=== PATIENT | male | born 1950 ===

== ENCOUNTER 2016-09-10 06:17 | Day surgery (SDC) | payer MEDICARE, OTHER ==
--- NOTE | ~2016-09-10 | EGD ---
EGD REPORT [facility] [address] [address] NAME: BRIGITTE ROBISONSUSHANT [place] III : [birth year] STATUS : REG [facility] [place] PAT#: [id number] AGE: 66 ADM/REG DATE : 09/10/16 MR#: [id number] REPORT SERV DATE: 09/10/16 DICTATED BY: JIMMIE NAVA DATE: 09/10/16 REPORT STATUS : Draft TRANSCRIBED BY: [facility] DATE: 09/10/16 End[facility] Center Patient Name: Brigitte Robison Sushant Date of : 1950 Attending MD: JIMMIE NAVA MD Procedure Date No Time: 09/10/2016 Procedure: Upper GI endoscopy Indications: Follow-up of Napier's esophagus Referring MD: Quirino PIZANO Medicines: as per anesthesia Complications: No immediate complications. Procedure: Pre-Anesthesia Assessment: - ASA Grade Assessment: III - A patient with severe systemic disease. After obtaining informed consent, the endoscope was passed under direct vision. Throughout the procedure, the patient's blood pressure, pulse, and oxygen saturations were monitored continuously. The GIF H190 [id number] was introduced through the mouth, and advanced to the third part of duodenum. The upper GI endoscopy was accomplished without difficulty. The patient tolerated the procedure. 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 The maximum longitudinal extent of these mucosal changes was 2 cm in length. Mucosa was biopsied with a cold forceps for histology randomly at intervals of 1 cm in the lower third of the esophagus. One specimen bottle was sent to pathology. Localized mild inflammation characterized by erythema was found in the gastric antrum. Biopsies were taken with a cold forceps for histology. The cardia and gastric fundus were normal on retroflexion. The examined duodenum was normal. Impression: - Esophageal mucosal changes secondary to established short-segment Napier's disease. Biopsied. - Gastritis. Biopsied. - Normal examined duodenum. Recommendation: - Await pathology results. - Follow an antireflux regimen. - Continue present medications. Procedure Code(s): --- Professional --- EGD REPORT [facility] [address] [address] NAME: BRIGITTE ROBISON,SUSHANT [place] III : [birth year] STATUS : REG [facility] [place] PAT#: [id number] AGE: 66 ADM/REG DATE : 09/10/16 MR#: [id number] REPORT SERV DATE: 09/10/16 DICTATED BY: JIMMIE NAVA DATE: 09/10/16 REPORT STATUS : Draft TRANSCRIBED BY: [employer] DATE: 09/10/16 [id number], Esophagogastroduodenoscopy, flexible, transoral; with biopsy, single or multiple Diagnosis Code(s): --- Professional --- K22.70, Napier's esophagus without dysplasia K29.70, Gastritis, unspecified, without bleeding CPT copyright 2013 [employer]. All rights reserved. The codes documented in this report are preliminary and upon cathodic protection technician review may be revised to meet current compliance requirements. JIMMIE NAVA MD 09/10/2016 8:13 AM This report has been signed electronically. Number of Addenda: 0 Note Initiated On: 09/10/2016 7:52 AM Scope Withdrawal Time 0 hours 0 minutes 0 seconds [address] [facility] [address] [place] [address]
--- NOTE | ~2016-09-10 | EGD ---
EGD REPORT [facility] [address] [address] NAME: BRIGITTE ROBISONSUSHANT COLE[place] III : [birth year] STATUS : REG [facility] [place] PAT#: [id number] AGE: 66 ADM/REG DATE : 09/10/16 MR#: [id number] REPORT SERV DATE: 09/10/16 DICTATED BY: JIMMIE NAVA DATE: 09/10/16 REPORT STATUS : Draft TRANSCRIBED BY: [facility] DATE: 09/10/16 Endoscopy Center Patient Name: Brigitte Robison Sushant Date of : 1950 Attending MD: JIMMIE NAVA MD Procedure Date No Time: 09/10/2016 Procedure: Colonoscopy Indications: High risk colon cancer surveillance: Personal history of colonic polyps, FH of Colon Cancer - multiple second-degree relatives Referring MD: Quirino PETERSON Medicines: as per anesthesia Complications: No immediate complications. Procedure: Pre-Anesthesia Assessment: - ASA Grade Assessment: III - A patient with severe systemic disease. After I obtained informed consent, the scope was passed under direct vision. Throughout the procedure, the patient's blood pressure, pulse, and oxygen saturations were monitored continuously. The PCF [id number] was introduced through the anus and advanced to the cecum, identified by appendiceal orifice and ileocecal valve. The colonoscopy was performed without difficulty. The patient tolerated the procedure. The quality of the bowel preparation was fair. Findings: The perianal and digital rectal examinations were normal. Multiple small and large-mouthed diverticula were found in the sigmoid colon, in the descending colon, in the transverse colon and in the ascending colon. Internal hemorrhoids were found during endoscopy and were mild. Impression: - Diverticulosis in the sigmoid colon, in the descending colon, in the transverse colon and in the ascending colon. - Internal hemorrhoids. Recommendation: - Repeat colonoscopy in 3 years for surveillance. Procedure Code(s): --- Professional --- 15653, Colonoscopy, flexible, proximal to splenic flexure; diagnostic, with or without collection of specimen(s) by brushing or washing, with or without colon decompression (separate procedure) EGD REPORT [facility] [address] [address] [address] NAME: BRIGITTE ROBISON,SUSHANT COLE[place] III : [birth year] STATUS : REG [facility] [place] PAT#: [id number] AGE: 66 ADM/REG DATE : 09/10/16 MR#: [id number] REPORT SERV DATE: 09/10/16 DICTATED BY: JIMMIE NAVA. DATE: 09/10/16 REPORT STATUS : Draft TRANSCRIBED BY: [employer] DATE: 09/10/16 Diagnosis Code(s): --- Professional --- K64.8, Other hemorrhoids K57.30, Diverticulosis of large intestine without perforation or abscess without bleeding Z86.010, Personal history of colonic polyps Z80.0, Family history of malignant neoplasm of digestive organs CPT copyright 2013 [employer]. All rights reserved. The codes documented in this report are preliminary and upon bessemer regulator review may be revised to meet current compliance requirements. JIMMIE NAVA MD 09/10/2016 8:36 AM This report has been signed electronically. Number of Addenda: 0 Note Initiated On: 09/10/2016 7:49 AM Scope Withdrawal Time 0 hours 6 minutes 34 seconds [address] [address]
[~2016-09-10 06:17] MED LIST: HYCAMTIN; PEP20 PO; [UNRECOGNIZED DRUG - REMARK] PO
[2016-09-10 07:22] LABS: BASOPHILS 0.5 %; BASOPHILS ABSOLUTE 0.03 10/3/uL (0.0-0.16); EOSINOPHILS ABSOLUTE 0.06 10/3/uL (0.0-0.53); HEMATOCRIT 47.1 % (40.0-51.0); HEMOGLOBIN 16.2 g/dL (13.6-17.8); IMMATURE GRANULOCYTES 0.3 %; IMMATURE GRANULOCYTES ABSOLUTE 0.02 10/3/uL (0.0-0.11); LYMPHOCYTES 39.7 %; LYMPHOCYTES ABSOLUTE 2.36 10/3/uL (0.67-4.30); MEAN CORPUS HGB CONC 34.4 g/dL (32.0-36.0); MEAN CORPUSCULAR HEMOGLOB 32.3 pg (26.0-34.0); MEAN PLATELET VOLUME 10.1 fL (9.2-13.0); MONOCYTES 13.3 %; MONOCYTES ABSOLUTE 0.79 10/3/uL (0.21-1.20); NEUTROPHILS 45.2 %; NEUTROPHILS ABSOLUTE 2.68 10/3/uL (2.02-8.40); PLATELET COUNT 216 10/3/uL (150-400); RBC DISTRIBUTION WIDTH 14.8 % (12.0-16.0); RED CELL COUNT 5.01 10/6/uL (4.7-6.1); WHITE BLOOD CELLS 5.9 10/3/uL (4.5-10.5)
[2016-09-10 07:23] LABS: MANUAL DIFF NO %
[2016-09-10 07:44] LABS: A/G RATIO 1.3 (0.7-1.9); ALBUMIN 4.1 G/DL (3.5-5.0); ALKALINE PHOSPHATASE 33 U/L (45-117); BUN (BLOOD UREA NITROGEN) 12 MG/DL (6-23); CALCIUM, SERUM 8.9 MG/DL (8.5-10.4); CHLORIDE, SERUM 104 MMOL/L (96-112); CHOL/HDL RATIO(NOT ORDER) 2.7 (0-5); CHOLESTEROL 247 MG/DL (< 200); CO2 (CARBON DIOXIDE) 27 MMOL/L (24-34); CREATININE 1.19 MG/DL (0.70-1.30); GFR AFRICAN AMERICAN 72 ML/MIN (>=60); GFR NON AFRICAN AMERICAN 62 ML/MIN (>=60); GLOBULIN 3.1 G/DL (2.5-4.1); GLUCOSE, SERUM 91 MG/DL (60-99); HDL CHOLESTEROL 93 MG/DL (> 39); LDL CHOLESTEROL 130 MG/DL (< 130); NON-HDL CHOLESTEROL 154 MG/DL (< 160); SGOT(AST) 25 U/L (5-40); SGPT(ALT) 25 U/L (5-65); SODIUM, SERUM 141 MMOL/L (135-148); TOTAL BILIRUBIN 1.1 MG/DL (0-1.2); TOTAL PROTEIN 7.2 G/DL (6.0-8.5); TRIGLYCERIDE 124 MG/DL (< 150)
== END 2016-09-10 23:59 | disposition home or self-care (01) ==
LOC: DMU 06:17
PROVIDERS: Internal Medicine Gastroenterology
PROC: 0DB38ZX Excision of Lower Esophagus, Via Natural or Artificial Opening Endoscopic, Diagnostic (ICD-10-PCS; 2016-09-10)
PROC: 0DJD8ZZ Inspection of Lower Intestinal Tract, Via Natural or Artificial Opening Endoscopic (ICD-10-PCS; principal; 2016-09-10 07:30)
PROC: 0DB68ZX Excision of Stomach, Via Natural or Artificial Opening Endoscopic, Diagnostic (ICD-10-PCS; 2016-09-10 07:30)
DX: Z12.11 Encounter for screening for malignant neoplasm of colon (principal); K64.8 Other hemorrhoids; K57.30 Diverticulosis of large intestine without perforation or abscess without bleeding; K22.70 Barrett's esophagus without dysplasia; K29.70 Gastritis, unspecified, without bleeding; K21.9 Gastro-esophageal reflux disease without esophagitis; Z86.010 Personal history of colon polyps; Z79.899 Other long term (current) drug therapy; Z80.0 Family history of malignant neoplasm of digestive organs; Z88.0 Allergy status to penicillin; Z88.1 Allergy status to other antibiotic agents; Z88.8 Allergy status to other drugs, medicaments and biological substances
CPT/HCPCS: 43239; G0105; 36415; 80053; 80061; 82565; 84153; 84443; 85025; 88305